=== PATIENT | male | born 1960 | race Hispanic/Latino ===

== ENCOUNTER → 2019-12-08 | Outpatient (CLI) | payer OTHER | END | disposition home or self-care (01) | LOC: RAH 13:31 | PROVIDERS: ATTEND Family Medicine | DX: Z13.6 Encounter for screening for cardiovascular disorders (principal) | CPT/HCPCS: 75571 ==

== ENCOUNTER → 2021-09-28 | Outpatient (CLI) | payer BC ==
[2021-09-28 11:20] LABS: CREATININE 0.9 mg/dL (0.5-1.5)
== END | disposition home or self-care (01) ==
LOC: LAB 10:33
PROVIDERS: ATTEND Student in an Organized Health Care Education/Training Program
DX: I10 Essential (primary) hypertension (principal)
CPT/HCPCS: 36415; 82565; 84520

== ENCOUNTER → 2021-10-10 | Outpatient (CLI) | payer BC ==
[~2021-10-10] MED LIST: IOHEXOL 350 MG/ML 100ML INFUS..BTL IV ONE; METOPROLOL TARTRATE 1 MG/ML 5ML VIAL IV ONE
== END | disposition home or self-care (01) ==
LOC: RAH 08:53
PROVIDERS: ATTEND Student in an Organized Health Care Education/Training Program
DX: R07.9 Chest pain, unspecified (principal)
CPT/HCPCS: 75574; J3490; Q9967

== ENCOUNTER → 2021-12-11 | Outpatient (CLI) | payer BC | END | disposition home or self-care (01) | LOC: SHCH 08:46 | PROVIDERS: ATTEND Student in an Organized Health Care Education/Training Program | DX: I70.219 Atherosclerosis of native arteries of extremities with intermittent claudication, unspecified extremity (principal) | CPT/HCPCS: 93925; 93978 ==

== ENCOUNTER 2023-02-27 08:35 | Day surgery (SDC) | payer BC ==
[2023-02-25 10:31] LABS: CREATININE 0.8 mg/dL (0.5-1.5); POTASSIUM 4.3 mmol/L (3.5-5.1)
[2023-02-27] VITALS (9 sets, daily range): BP systolic 114–147; BP diastolic 62–82; PULSE 76–85; RESP 16–20
[~2023-02-27] VITALS: Ht 165.1 cm; Wt 65.4 kg
[~2023-02-27 08:35] MED LIST changes: +0.9%NACL 1000ML 1,000 ML IV ONE; +ASPI-1197 PO; +BACL10TA PO; +DILT120C43 PO; +EMPA1TAB7 PO; +ESCI-8 PO; +FINE20TA PO; +HYDR12.54 PO; +INSU100C14 SQ; -IOHEXOL 350 MG/ML 100ML INFUS..BTL IV ONE; +LOSA100T59 PO; +METO-409 PO; -METOPROLOL TARTRATE 1 MG/ML 5ML VIAL IV ONE; +NAPR-1174 PO; +SIMVASTATIN PO; +TIRZ15PE SQ
[2023-02-27] MEDS ORDERED: PROPOFOL 10 MG/ML 20ML VIAL IV ONE (11:15)
[2023-02-27] MEDS ORDERED: LIDOCAINE HCL 1% 20 ML VIAL ONE (11:15)
== END 2023-02-27 12:30 | disposition home or self-care (01) ==
LOC: DAH 08:35 → ENDO 08:35
PROVIDERS: ATTEND Internal Medicine
DX: Z12.11 Encounter for screening for malignant neoplasm of colon (principal); D12.4 Benign neoplasm of descending colon; R10.30 Lower abdominal pain, unspecified; K64.0 First degree hemorrhoids; K59.04 Chronic idiopathic constipation; I10 Essential (primary) hypertension; E11.9 Type 2 diabetes mellitus without complications; E78.2 Mixed hyperlipidemia; E66.9 Obesity, unspecified; Z86.010 Personal history of colon polyps; Z79.899 Other long term (current) drug therapy; Z79.01 Long term (current) use of anticoagulants; Z79.82 Long term (current) use of aspirin; Z85.46 Personal history of malignant neoplasm of prostate; Z72.89 Other problems related to lifestyle; Z68.41 Body mass index [BMI] 40.0-44.9, adult
CPT/HCPCS: 80048; 36415; 93005; 82948; 45385; J7030 ×2; J2704; A4620; A4215 ×2; A4223; A7002; A4222; A4221; A4663; A4216; A4606; J3490